=== PATIENT | female | born 2000 | race Hispanic/Latino ===

== ENCOUNTER 2022-01-20 21:37 | Outpatient (CLI) | payer MEDICAID, OTHER ==
[2022-01-20 21:58] VITALS: BP 128/70
--- NOTE | 2022-01-21 02:46 | Ultrasound Report ---
ULTRASOUND OBSTETRIC LIMITED ULTRASOUND BIOPHYSICAL PROFILE INDICATION / CLINICAL INFORMATION: Labor. COMPARISON: None available. FINDINGS: BREATHING MOVEMENT = 2 GROSS BODY MOVEMENT = 2 TONE = 2 QUALITATIVE AMNIOTIC FLUID VOLUME = 2 TOTAL BIOPHYSICAL SCORE = 8/8 AMNIOTIC FLUID INDEX (cm) = 9.4 PRESENTATION: Cephalic. HEART RATE (beats per minute): 137 ADDITIONAL FINDINGS: None. IMPRESSION: 1. Biophysical Score = 8/8 Signer Name: Bon Minaya MD Signed: 01/21/2022 2:42 AM Workstation Name: [id number]
--- NOTE | 2022-01-21 02:46 | Ultrasound Report ---
ULTRASOUND OBSTETRIC INDICATION / CLINICAL INFORMATION: labor. Clinical Gestational Age (GA): 37 week 4 day TECHNIQUE: Transabdominal. COMPARISON: None available. FINDINGS: There is a single intrauterine . Biparietal Diameter = 9.3 cm = 38 weeks, 0 day(s). Head Circumference = 32 cm = 36 weeks, 0 day(s). Abdominal Circumference = 33.5 cm = 37 weeks, 3 day(s). Femur Length = 6.8 cm = 35 weeks, 1 day(s). Average Ultrasound Age (AUA) = 36 weeks, 5 day(s). Heart Rate: 137 beats per minute. Estimated Weight in grams (if calculated): 3024 Estimated Weight Growth Percentile (if calculated): 38 Position: cephalic. Cervix: closed. Length in cm (if measured): Placenta: and free of the os. Amniotic Fluid Volume: normal Amniotic Fluid Index (CLIVE) in cm (if calculated): 9.4. Maternal Adnexa: No significant abnormality. IMPRESSION: 1. Single, living intrauterine with estimated sonographic age of 36 weeks, 5 day(s). 2. No significant sonographic abnormality. Signer Name: Bon Minaya MD Signed: 01/21/2022 2:41 AM Workstation Name: [id number]
== END 2022-01-21 00:10 | disposition home or self-care (01) ==
LOC: TRG 21:37 → APU 21:38 → TRG 01-21 00:10
PROVIDERS: ATTEND Obstetrics & Gynecology
DX: Z34.93 Encounter for supervision of normal pregnancy, unspecified, third trimester (principal); Z3A.37 37 weeks gestation of pregnancy
CPT/HCPCS: 76816; 76819